=== PATIENT | female | born 1985 | race Caucasian/White ===

== ENCOUNTER 2021-04-02 14:48 | Inpatient (IN) ==
[2021-04-02] MEDS ORDERED: DEXTROSE 50% 25 GM/50 ML SYRINGE IV ONE (15:00)
[2021-04-02] MEDS ORDERED: SODIUM CHLORIDE 0.9% 1,000 ML IV STA ×2 (15:58→16:30)
[2021-04-02] MEDS ORDERED: cefTRIAXone 2,000 MG in SODIUM CHLORIDE 0.9% 100 ML IV ONE (16:03)
[2021-04-02 16:18] LABS: Basophils % 0.2 % (0.0-0.8); Hemoglobin 13.4 GM/DL (12.0-16.0); Immature Granulocytes % 1.7 %; Immature Granulocytes Absolute 0.26 #; Lymphocytes % 6.4 % (21.3-54.2); Mean Corpuscular HGB Conc 34.4 GM/DL (32-36); Mean Corpuscular Volume 134.5 FL (87-102); Mean Platelet Volume 10.4 FL (9.6-12.0); NRBC # 0.08 10*3/uL; Neutrophils % 87.7 % (38.7-73.9); Platelet Count 229 T/CUMM (130-400); White Blood Count 14.9 T/CUMM (4-12)
[2021-04-02] MEDS ORDERED: cefTRIAXone 1,000 MG VIAL ONE (16:34)
[2021-04-02 16:41] LABS: INR 1.3; PT Patient Result 14.3 SECS (10.5-12.0); Partial Thromboplastin Time 29.2 SECS (23.9-33.8)
[2021-04-02 16:41] LABS: Bacteria,Urine Occasional /HPF (Few); Bilirubin,Urine Negative (Negative); Blood, Urine Small mg/dL (Negative); Glucose,Urine (UA) Negative (Negative); Hyaline Casts,Urine 41 /LPF (0-3); Ketones,Urine 5 mg/dL (Negative); Mucus,Urine Occasional /LPF (Occasional); Nitrite,Urine Negative (Negative); Protein,Urine Negative; Squamous Epithelial Cell,Urine Occasional /HPF (0-10); Urine Appearance CLEAR (Clear); Urine Color Yellow (Yellow); Urine Specific Gravity 1.013 (1.001-1.035)
[2021-04-02 16:43] LABS: Alanine Aminotransferase 76 U/L (13-56); Albumin 3.1 G/DL (3.4-5.0); Alkaline Phosphatase 120 U/L (45-117); Aspartate Amino Transferase 218 U/L (0-37); Blood Urea Nitrogen 22 MG/DL (7-18); Calcium 8.8 MG/DL (8.5-10.1); Carbon Dioxide 8 MMOL/L (21-32); Estimated Glom Filtration Rate 31 ML/MIN; Glucose 140 MG/DL (74-106); Osmolality,Calculated 264.8 MOS/KG (273-304); Potassium 5.5 MMOL/L (3.5-5.1); Sodium 130 MMOL/L (136-145); Total Protein 6.9 G/DL (6.4-8.2)
[2021-04-02 16:43] LABS: Barbiturates Screen,Urine Negative (Negative); Benzodiazepines Screen,Urine Negative (Negative); Cannabinoid Screen,Urine Negative (Negative); Opiate Screen,Urine Negative (Negative); Phencyclidine Screen,Urine Negative (Negative)
[2021-04-02] MEDS ORDERED: ALBUTEROL 2.5 MG/3 ML NEB RESP TX PRN (17:03)
[2021-04-02] MEDS ORDERED: GLUCAGON 1 MG VIAL IM PRN (17:06)
[2021-04-02] MEDS ORDERED: SODIUM CHLORIDE 0.9% 1,000 ML IV ONE ×2 (17:07→20:37)
[2021-04-02 17:12] LABS: ABG Base Excess -22.4 MMOL/L (-2.5-2.5); ABG HCO3 8.6 MMOL/L (20-26); ABG Oxygen Saturation 98.2 % (95-100); ABG TCO2 4.9 MMOL/L (23-27); Allen Test Positive
[2021-04-02 17:18] LABS: ABG PCO2 14.5 MM HG (35-48)
[2021-04-02] MEDS ORDERED: levETIRAcetam 500 MG/5 ML VIAL IV ONE ×2 (17:29→18:20)
[2021-04-02] MEDS ORDERED: ENOXAPARIN 30 MG/0.3 ML SYRINGE SUBCUT SCH (17:30)
[2021-04-02] MEDS ORDERED: SODIUM BICARB INJ 100 MEQ in DEXTROSE 5% 1,000 ML IV SCH (17:30)
[2021-04-02] MEDS ORDERED: NOREPINEPHRINE 4 MG/4 ML VIAL IV ONE (17:39)
[2021-04-02 18:03] LABS: Hepatitis B Surface Ag Quant < 0.10 Index; Hepatitis B Surface Ag Result Non-Reactive (NonReactive); Hepatitis C Virus Ab Quant 0.11 Index; Hepatitis C Virus Ab Result Non-Reactive (NonReactive)
[2021-04-02] MEDS: FAMOTIDINE 20 MG/2 ML VIAL IV SCH (18:29)
[2021-04-02] MEDS: LACTULOSE 20 GM/30 ML UDCUP PO SCH (18:30)
[2021-04-02 19:13] VITALS: BP 147/123
[2021-04-02] MEDS: DEXTROSE 50% 25 GM/50 ML VIAL IV PRN (19:59)
[2021-04-02] MEDS ORDERED: SODIUM BICARBONATE 50 MEQ/50 ML VIAL IV ONE ×4 (20:00→20:05)
[2021-04-02] MEDS ORDERED: VECURONIUM 10 MG VIAL IV ONE (20:04)
[2021-04-02] MEDS ORDERED: ETOMIDATE 20 MG/10 ML VIAL IV ONE (20:04)
[2021-04-02] MEDS ORDERED: LORazepam 2 MG/1 ML VIAL ONE (20:08)
[2021-04-02] MEDS ORDERED: SODIUM BICARB INJ 150 MEQ in DEXTROSE 5% 850 ML IV SCH (20:30)
[2021-04-02] MEDS ORDERED: PHENYLEPHRINE DRIP 40 MG/250 ML PREMIX IV PRN (20:30)
[2021-04-02 20:39] LABS: Basophils # 0.1 10*3/uL (0.0-0.2); Basophils % 0.4 % (0.0-0.8); Eosinophils # 2.3 10*3/uL (0.0-0.87); Eosinophils % 17.7 % (0.00-10.9); Hematocrit 34.8 VOL% (35.7-47.0); Hemoglobin 11.5 GM/DL (12.0-16.0); Immature Granulocytes % 1.9 %; Immature Granulocytes Absolute 0.25 #; Lymphocytes # 1.2 10*3/uL (1.4-4.0); Lymphocytes % 9.2 % (21.3-54.2); Mean Corpuscular Volume 138.6 FL (87-102); Mean Platelet Volume 10.2 FL (9.6-12.0); Monocytes % 3.6 % (1.7-12.7); Neutrophils % 67.2 % (38.7-73.9); Platelet Count 218 T/CUMM (130-400); Red Blood Count 2.51 MC/CUMM (3.8-5.5); Red Cell Distribution Width 14.3 % (9.3-17.3)
[2021-04-02 20:56] LABS: INR 1.4; PT Patient Result 15.1 SECS (10.5-12.0); Partial Thromboplastin Time 37.6 SECS (23.9-33.8)
[2021-04-02] MEDS ORDERED: THIAMINE INJ 100 MG, FOLIC ACID INJ 1 MG, MULTIVITAMIN INJ 10 ML in DEXTROSE 5% NACL 0.... IV SCH (21:00)
[2021-04-02 21:04] LABS: Albumin 2.6 G/DL (3.4-5.0); Bilirubin,Total 3.7 MG/DL (0.2-1.0); Calcium 6.9 MG/DL (8.5-10.1); Eosinophils 6 % (0-10); Lymphocytes 10 % (20-55); Nucleated Red Blood Cells 1 (0-5); Osmolality,Calculated 277.1 MOS/KG (273-304); Segmented Neutrophils 83 % (50-85); Total Cells Counted 100; Total Protein 5.6 G/DL (6.4-8.2)
[2021-04-02 21:06] LABS: Anisocytosis Slight; Macrocytosis 2+; Polychromasia Few
[2021-04-02 21:07] LABS: Salicylate < 2.8 MG/DL (2.8-20)
[2021-04-02 21:07] LABS: Basophilic Stippling Few; Platelet Estimate Adequate
[2021-04-02 21:16] LABS: CKMB % 0.8 %; High Sensitive Troponin I* 34.9 ng/L (0-54); Potassium 6.2 MMOL/L (3.5-5.1)
[2021-04-02] MEDS ORDERED: INSULIN REGULAR 10 UNIT, CALCIUM GLUCONATE 1,000 MG in DEXTROSE 10% 250 ML IV ONE (21:19)
[2021-04-02] MEDS ORDERED: propofoL 200 MG/20 ML VIAL IV ONE (21:19)
[2021-04-02] MEDS: SODIUM POLYSTYRENE SULFATE 15 GM/60 ML BOTTLE PO STA (21:36)
[2021-04-02] MEDS: NOREPINEPHRINE 8 MG in SODIUM CHLORIDE 0.9% 242 ML IV PRN (22:00)
[2021-04-03] MEDS ORDERED: LORazepam 2 MG/1 ML VIAL ONE (00:29)
[2021-04-03] MEDS ORDERED: SODIUM CHLORIDE 0.9% 1,000 ML IV ONE (00:31)
[2021-04-03] MEDS ORDERED: LORazepam 2 MG/1 ML VIAL IV PRN (00:33)
[2021-04-03] MEDS: DEXTROSE 50% 25 GM/50 ML VIAL IV PRN (00:34)
[2021-04-03 00:38] LABS: ABG Base Excess -16.1 MMOL/L (-2.5-2.5); ABG HCO3 12.4 MMOL/L (20-26); ABG Oxygen Saturation 87.9 % (95-100); ABG PCO2 36.5 MM HG (35-48); ABG PO2 73.1 MM HG (80-95); ABG TCO2 11.6 MMOL/L (23-27)
[2021-04-03] MEDS ORDERED: MIDAZOLAM 100 MG in SODIUM CHLORIDE 0.9% 80 ML IV PRN (00:39)
[2021-04-03 00:40] LABS: ABG PH 7.143 (7.35-7.45)
[2021-04-03] MEDS ORDERED: SODIUM BICARBONATE 50 MEQ/50 ML VIAL IV ONE ×2 (00:43→02:30)
[2021-04-03] MEDS: SODIUM POLYSTYRENE SULFATE 15 GM/60 ML BOTTLE PO STA (00:45)
[2021-04-03] MEDS: LACTULOSE 20 GM/30 ML UDCUP PO SCH ×2 (01:51→06:54)
[2021-04-03] MEDS: PIPERACILLIN/TAZOBACTAM 3,375 MG in SODIUM CHLORIDE 0.9% 100 ML IV SCH ×2 (01:52→06:55)
[2021-04-03] MEDS ORDERED: PHENYLEPHRINE DRIP 40 MG/250 ML PREMIX IV ONE (02:02)
[2021-04-03] MEDS: NOREPINEPHRINE 8 MG in SODIUM CHLORIDE 0.9% 242 ML IV PRN ×3 (02:02→05:36)
[2021-04-03] MEDS ORDERED: methylPREDNISolone SOD SUC 125 MG/2 ML VIAL ONE (02:07)
[2021-04-03] MEDS ORDERED: METOPROLOL TARTRATE 5 MG/5 ML VIAL IV ONE ×2 (02:20→02:35)
[2021-04-03] MEDS ORDERED: methylPREDNISolone SOD SUC 125 MG/2 ML VIAL IV SCH (02:30)
[2021-04-03 02:46] LABS: Calcium 6.1 MG/DL (8.5-10.1); Osmolality,Calculated 284.5 MOS/KG (273-304); Potassium 4.8 MMOL/L (3.5-5.1)
[2021-04-03 04:53] LABS: ABG Base Excess -17.6 MMOL/L (-2.5-2.5); ABG HCO3 10.3 MMOL/L (20-26); ABG Oxygen Saturation 88.4 % (95-100); ABG PCO2 31.6 MM HG (35-48); ABG PO2 72.2 MM HG (80-95); ABG TCO2 11.3 MMOL/L (23-27); Allen Test Positive; Pt O2 Delivery Device Ventilator
[2021-04-03 04:59] LABS: ABG PH 7.132 (7.35-7.45)
[2021-04-03] MEDS ORDERED: ACETAMINOPHEN 325 MG/10.15 ML UDCUP PO ONE (05:20)
[2021-04-03] MEDS ORDERED: ACETAMINOPHEN 325 MG/10.15 ML UDCUP PO PRN (05:20)
[2021-04-03 05:31] LABS: Basophils % 0.3 % (0.0-0.8); Eosinophils % 0.2 % (0.00-10.9); Hematocrit 39.4 VOL% (35.7-47.0); Immature Granulocytes % 0.6 %; Immature Granulocytes Absolute 0.04 #; Lymphocytes # 0.7 10*3/uL (1.4-4.0); Lymphocytes % 11.3 % (21.3-54.2); Mean Corpuscular Volume 140.2 FL (87-102); Mean Platelet Volume 10.5 FL (9.6-12.0); Monocytes % 3.8 % (1.7-12.7); NRBC # 0.16 10*3/uL; Neutrophils % 83.8 % (38.7-73.9); Platelet Count 171 T/CUMM (130-400); Red Blood Count 2.81 MC/CUMM (3.8-5.5); Red Cell Distribution Width 14.6 % (9.3-17.3); White Blood Count 6.6 T/CUMM (4-12)
[2021-04-03 05:55] LABS: Albumin 2.3 G/DL (3.4-5.0); Bilirubin,Total 2.5 MG/DL (0.2-1.0); Calcium 6.3 MG/DL (8.5-10.1); Osmolality,Calculated 276.8 MOS/KG (273-304); Potassium 5.3 MMOL/L (3.5-5.1)
[2021-04-03 06:12] LABS: INR 1.4; PT Patient Result 15.2 SECS (10.5-12.0)
[2021-04-03] MEDS: FAMOTIDINE 20 MG/2 ML VIAL IV SCH (06:54)
[2021-04-03 07:14] LABS: Band Neutrophils 2 % (0-10); Eosinophils 2 % (0-10); Lymphocytes 8 % (20-55); Metamyelocytes 1 %; Nucleated Red Blood Cells 8 (0-5); Segmented Neutrophils 86 % (50-85); Total Cells Counted 100
[2021-04-03 07:15] LABS: Platelet Estimate Normal
== END 2021-04-03 06:46 | disposition expired | DRG 100 ==
LOC: EDBD → EDUNIT# → N.ED 14:48 → N.EDINP 17:03 → N.ICU 19:30
PROVIDERS: ADMIT Internal Medicine; ATTEND Internal Medicine